=== PATIENT | female | born 1950 | race Hispanic/Latino ===

== ENCOUNTER 2017-03-03 13:46 | Emergency (ER) | payer MEDICARE ==
[~2017-03-03 13:46] MED LIST: ADV250 IH; ALBU8.5H8 IH; DICY20TA11 PO; DULO20CA17 PO; EZET10 PO; HYDR-4068 PO; LISI10TA7 PO; LORA2TAB2 PO; PANT40TA25 PO; PREG150C PO; TRAM50TA4 PO
[2017-03-03] MEDS ORDERED: ONDANSETRON HCL 4 MG/2 ML VIAL ONE (14:41)
[2017-03-03] MEDS ORDERED: MORPHINE SULFATE 4 MG/1ML SYG ONE (14:42)
[2017-06-26] MEDS ORDERED: NITR0.4T SL (08:57)
== END 2017-03-03 15:14 | disposition home or self-care (01) ==
LOC: EDH 13:46
DX: S40.011A Contusion of right shoulder, initial encounter (principal); Z88.0 Allergy status to penicillin; Z88.2 Allergy status to sulfonamides; Z88.8 Allergy status to other drugs, medicaments and biological substances; W18.39XA Other fall on same level, initial encounter; Y93.01 Activity, walking, marching and hiking; Y92.89 Other specified places as the place of occurrence of the external cause; Y99.8 Other external cause status
CPT/HCPCS: 73030; 73060; 96372 ×2; 99284; J2270; J2405

== ENCOUNTER 2017-04-02 21:02 | Emergency (ER) | payer MEDICARE ==
[2017-04-02] MEDS ORDERED: ONDANSETRON HCL 4 MG/2 ML VIAL ONE (21:56)
[2017-04-02] MEDS ORDERED: SODIUM CHLORIDE 0.9% 1000ML 1,000 ML IV ONE (21:57)
[2017-04-02] MEDS ORDERED: MORPHINE SULFATE 4 MG/1ML SYG ONE (21:57)
[2017-04-02 22:06] LABS: BASOPHILS % (AUTO) 1.4 % (0.0-5.0); EOSINOPHILS % (AUTO) 2.4 % (0.0-8.0); HEMATOCRIT 36.5 % (36-48); LYMPHOCYTES % (AUTO) 35.4 % (21.0-51.0); MEAN CORPUSCULAR HEMOGLOBIN 29.4 pg (27.0-33.0); MEAN CORPUSCULAR HGB CONC 34.4 g/dL (32.0-36.0); MEAN CORPUSCULAR VOLUME 85.5 fL (79-99); MONOCYTES % (AUTO) 9.3 % (3.0-13.0); NEUTROPHILS % (AUTO) 51.5 % (40.0-77.0); PLATELET COUNT (AUTO) 183 K/uL (130-400); RED BLOOD CELL COUNT(AUTO) 4.26 MIL/uL (4.00-5.50); RED CELL DISTRIBUTION WIDTH 14.9 % (11.0-15.5); WHITE BLOOD COUNT (AUTO) 7.4 K/uL (4.8-10.8)
[2017-04-02 22:38] LABS: RAPID GROUP A STREP NEGATIVE (NEGATIVE)
[2017-04-02 22:42] LABS: CREATININE 0.8 mg/dL (0.5-1.5); POTASSIUM 3.6 mmol/L (3.5-5.1)
[2017-04-02 22:45] LABS: BILIRUBIN,TOTAL 0.4 mg/dL (0.2-1.0); TOTAL PROTEIN, SERUM 6.5 g/dL (6.0-8.3)
[2017-04-02 23:44] LABS: APPEARANCE,URINE Clear (CLEAR); BILIRUBIN,URINE Negative (NEGATIVE); COLOR,URINE Yellow (YELLOW); GLUCOSE, URINE (UA) Negative (NEGATIVE); KETONES,URINE Negative (NEGATIVE); LEUKOCYTE ESTERASE ,URINE Negative (NEGATIVE); NITRATE,URINE Negative (NEGATIVE); OCCULT BLOOD,URINE Negative (NEGATIVE); PH,URINE 5.5 (5.0-8.0); PROTEIN,URINE Negative (NEGATIVE); UROBILINOGEN,URINE 0.2 mg/dL (0.2-1.0)
[2017-04-03] MEDS ORDERED: METHYLPREDNISOLONE SOD SUCC 125MG/2ML VIAL ONE (00:49)
[2017-04-03] MEDS ORDERED: KETOROLAC TROMETHAMINE 30MG/ML ONE (00:50)
[2017-06-26] MEDS ORDERED: NITR0.4T SL (08:57)
== END 2017-04-03 01:05 | disposition home or self-care (01) ==
LOC: EDH 21:02
DX: M06.80 Other specified rheumatoid arthritis, unspecified site (principal); I10 Essential (primary) hypertension; K21.9 Gastro-esophageal reflux disease without esophagitis; Z88.0 Allergy status to penicillin; Z88.2 Allergy status to sulfonamides; Z88.1 Allergy status to other antibiotic agents; Z91.040 Latex allergy status; Z88.8 Allergy status to other drugs, medicaments and biological substances
CPT/HCPCS: 36415; 71045; 80053; 81003; 85025; 87804 ×2; 87880; 96361; 96374; 96375; 99285; J1885; J2270; J2405; J2930; J7030

== ENCOUNTER 2017-04-10 00:25 | Observation (INO) | payer MEDICARE ==
[~2017-04-10] VITALS: Ht 149.9 cm; Wt 66.3 kg
[2017-04-10 01:26] LABS: BASOPHILS % (AUTO) 0.6 % (0.0-5.0); CARBON DIOXIDE 26 mmol/L (21-32); CHLORIDE 103 mmol/L (101-111); CREATININE 0.8 mg/dL (0.5-1.5); EOSINOPHILS % (AUTO) 0.1 % (0.0-8.0); GLOMERULAR FILTR. RATE CALC 76 mL/min (>60); GLUCOSE,RANDOM 151 mg/dL (70-105); LYMPHOCYTES % (AUTO) 12.3 % (21.0-51.0); MEAN CORPUSCULAR HEMOGLOBIN 29.8 pg (27.0-33.0); MEAN CORPUSCULAR HGB CONC 34.3 g/dL (32.0-36.0); MEAN CORPUSCULAR VOLUME 86.9 fL (79-99); MONOCYTES % (AUTO) 2.4 % (3.0-13.0); NEUTROPHILS % (AUTO) 84.6 % (40.0-77.0); PLATELET COUNT (AUTO) 184 K/uL (130-400); RED BLOOD CELL COUNT(AUTO) 4.26 MIL/uL (4.00-5.50); RED CELL DISTRIBUTION WIDTH 15.4 % (11.0-15.5); SODIUM SERUM 138 mmol/L (136-145); UREA NITROGEN, BLOOD 16 mg/dL (7-18); WHITE BLOOD COUNT (AUTO) 8.5 K/uL (4.8-10.8)
[2017-04-10 01:40] LABS: ALANINE AMINOTRANSFERASE 15 U/L (12-78); ASPARTATE AMINOTRANSFERASE 7 U/L (10-37); BILIRUBIN,TOTAL 0.3 mg/dL (0.2-1.0); CREATINE KINASE MB < 0.5 ng/mL (0.5-3.6); CREATINE KINASE, TOTAL 40 U/L (21-232); TOTAL PROTEIN, SERUM 6.2 g/dL (6.0-8.3)
[2017-04-10] MEDS ORDERED: NITROGLYCERIN 0.4 MG SL TAB SL ONE (02:11)
[2017-04-10] MEDS ORDERED: NITROGLYCERIN 1GM/1 INCH PACKET TD ONE (02:24)
[2017-04-10 02:44] LABS: INR 0.97 (0.85-1.15); PARTIAL THROMBOPLASTIN TIME 24.7 SEC (26.3-35.5); PROTHROMBIN TIME 10.2 SEC (9.6-11.6)
[2017-04-10] MEDS ORDERED: ONDANSETRON HCL 4 MG/2 ML VIAL ONE (05:28)
[2017-04-10] MEDS ORDERED: MORPHINE SULFATE 8 MG/ML VIAL ONE (05:29)
[2017-04-10] MEDS ORDERED: HYDRALAZINE HCL 20 MG/ML VIAL IV PRN (05:45)
[2017-04-10] MEDS ORDERED: ONDANSETRON HCL 4 MG/2 ML VIAL IV PRN (05:45)
[2017-04-10] MEDS ORDERED: ACETAMINOPHEN 325 MG TAB PO PRN (05:45)
[2017-04-10] MEDS ORDERED: NITROGLYCERIN 0.4 MG SL TAB SL PRN (05:45)
[2017-04-10] MEDS ORDERED: FAMOTIDINE 20MG TAB 20 MG TAB ONE (07:55)
[2017-04-10] MEDS ORDERED: ASPIRIN 325 MG TABLET ONE (07:55)
[2017-04-10 08:06] LABS: CREATINE KINASE MB < 0.5 ng/mL (0.5-3.6); CREATINE KINASE, TOTAL 33 U/L (21-232)
[2017-04-10] MEDS ORDERED: ACETAMINOPHEN 325 MG TAB ONE (08:53)
[2017-04-10] MEDS: FAMOTIDINE 20MG TAB 20 MG TAB PO SCH ×2 (09:00→21:06)
[2017-04-10] MEDS ORDERED: HYDROCODONE/ACETAMINOPHEN 10/325 MG TAB PO PRN (11:45)
[2017-04-10] MEDS ORDERED: TRAMADOL HCL 50 MG TABLET PO PRN (11:45)
[2017-04-10] MEDS ORDERED: DICYCLOMINE HCL 20 MG TAB PO PRN (11:45)
[2017-04-10 12:27] VITALS: BP 136/73
[2017-04-10] MEDS: SODIUM CHLORIDE 0.9% 1000ML 1,000 ML IV SCH ×3 (13:20→22:37)
[2017-04-10] MEDS: MORPHINE SULFATE 2 MG/ML 1ML SYG IV PRN ×2 (13:22→22:51)
[2017-04-10] MEDS ORDERED: GINK60TA2 PO (13:50)
[2017-04-10] MEDS ORDERED: SULF500T8 PO (13:50)
[2017-04-10] MEDS ORDERED: FISH1CAP27 PO (13:50)
[2017-04-10] MEDS ORDERED: FOLI1TAB15 PO (13:50)
[2017-04-10] MEDS ORDERED: CHOL500050 PO (13:50)
[2017-04-10] MEDS ORDERED: TRAM50TA4 PO (13:50)
[2017-04-10] MEDS ORDERED: HYDR-4064 PO (13:50)
[2017-04-10] MEDS ORDERED: AMLO5TAB2 PO (13:50)
[2017-04-10] MEDS ORDERED: FLUO-126 PO (13:50)
[2017-04-10] MEDS ORDERED: IBUP-2070 PO (13:50)
[2017-04-10] MEDS ORDERED: LEFL10TA15 PO (13:50)
[2017-04-10] MEDS ORDERED: MONT10TA24 PO (13:50)
[2017-04-10] MEDS ORDERED: NAPR-1023 PO (13:50)
[2017-04-10 13:54] LABS: CREATINE KINASE MB < 0.5 ng/mL (0.5-3.6); CREATINE KINASE, TOTAL 30 U/L (21-232); MYOGLOBIN 32 ng/mL (10-92); TROPONIN I < 0.04 ng/mL (0.00-0.06)
[2017-04-10 16:00] VITALS: BP 136/75
[2017-04-10] MEDS: ALBUTEROL SULFATE 0.083% 2.5 MG/3 ML INH IH SCH (18:28)
[2017-04-10] MEDS: BUDESONIDE 0.5 MG/2 ML INH IH SCH (18:28)
[2017-04-10 19:40] LABS: CREATINE KINASE MB < 0.5 ng/mL (0.5-3.6); CREATINE KINASE, TOTAL 33 U/L (21-232); MYOGLOBIN 22 ng/mL (10-92); TROPONIN I < 0.04 ng/mL (0.00-0.06)
[2017-04-10 20:00] VITALS: BP 144/70
[2017-04-10] MEDS ORDERED: LORAZEPAM 2 MG TABLET PO SCH (21:00)
[2017-04-10] MEDS: LORAZEPAM 1 MG TABLET PO SCH (21:04)
[2017-04-10] MEDS: PREGABALIN 75 MG CAPSULE PO SCH (21:06)
[2017-04-11] VITALS: BP 126/72
[2017-04-11] MEDS: ALBUTEROL SULFATE 0.083% 2.5 MG/3 ML INH IH SCH ×3 (00:14→11:02)
[2017-04-11 04:00] VITALS: BP 130/72
[2017-04-11] MEDS: BUDESONIDE 0.5 MG/2 ML INH IH SCH (06:17)
[2017-04-11 08:00] VITALS: BP 118/57
[2017-04-11] MEDS ORDERED: LACTULOSE 20 GM/30 ML UDCUP PO SCH (08:15)
[2017-04-11] MEDS ORDERED: EZETIMIBE 10 MG TAB PO SCH (09:00)
[2017-04-11] MEDS ORDERED: LISINOPRIL 10 MG TABLET PO SCH (09:00)
[2017-04-11] MEDS ORDERED: DULOXETINE HCL 30 MG CAP PO SCH (09:00)
[2017-04-11] MEDS ORDERED: PANTOPRAZOLE SODIUM 40 MG TABLET.DR PO SCH (09:00)
[2017-04-11] MEDS ORDERED: ASPIRIN 325 MG TABLET PO SCH (09:00)
[2017-04-11] MEDS: FAMOTIDINE 20MG TAB 20 MG TAB PO SCH (09:57)
[2017-04-11] MEDS: PREGABALIN 75 MG CAPSULE PO SCH (09:57)
[2017-04-11] MEDS: LORAZEPAM 1 MG TABLET PO SCH (09:58)
[2017-06-26] MEDS ORDERED: NITR0.4T SL (08:57)
== END 2017-04-11 12:10 | disposition home or self-care (01) ==
LOC: EDH 00:25 → EDHIP 02:01 → 3BH 11:56
PROVIDERS: ADMIT Family Medicine; ATTEND Family Medicine
DX: R07.89 Other chest pain (principal); K21.9 Gastro-esophageal reflux disease without esophagitis; I10 Essential (primary) hypertension; M06.9 Rheumatoid arthritis, unspecified; Z79.899 Other long term (current) drug therapy
CPT/HCPCS: 36415; 80053; 82550 ×4; 82553 ×4; 83874 ×2; 84484 ×4; 85025; 85610; 85730; 93005 ×3; 94640 ×5; 94664; 96361 ×2; 96374; 96375; 96376; 99291; A4510; G0378 ×34; J2270; J2405 ×2; J7030

== ENCOUNTER 2017-05-06 22:41 | Emergency (ER) | payer MEDICARE ==
[~2017-05-06 22:41] MED LIST changes: +AMLO5TAB2 PO; +CHOL500050 PO; +FISH1CAP27 PO; +FLUO-126 PO; +FOLI1TAB15 PO; +GINK60TA2 PO; +HYDR-4064 PO; +IBUP-2070 PO; +LEFL10TA15 PO; +MONT10TA24 PO; +NAPR-1023 PO; +SULF500T8 PO
[2017-05-06] MEDS ORDERED: ASPIRIN 325 MG TABLET ONE (23:42)
[2017-05-07 00:13] LABS: BASOPHILS % (AUTO) 0.7 % (0.0-5.0); EOSINOPHILS % (AUTO) 3.7 % (0.0-8.0); HEMATOCRIT 36.4 % (36-48); LYMPHOCYTES % (AUTO) 39.8 % (21.0-51.0); MEAN CORPUSCULAR HEMOGLOBIN 29.7 pg (27.0-33.0); MEAN CORPUSCULAR HGB CONC 34.1 g/dL (32.0-36.0); MEAN CORPUSCULAR VOLUME 87.1 fL (79-99); MONOCYTES % (AUTO) 10.2 % (3.0-13.0); NEUTROPHILS % (AUTO) 45.6 % (40.0-77.0); PLATELET COUNT (AUTO) 220 K/uL (130-400); RED BLOOD CELL COUNT(AUTO) 4.18 MIL/uL (4.00-5.50); RED CELL DISTRIBUTION WIDTH 14.9 % (11.0-15.5); WHITE BLOOD COUNT (AUTO) 6.1 K/uL (4.8-10.8)
[2017-05-07 00:23] LABS: CREATININE 0.7 mg/dL (0.5-1.5); POTASSIUM 3.7 mmol/L (3.5-5.1)
[2017-05-07 00:25] LABS: INR 0.97 (0.85-1.15); PARTIAL THROMBOPLASTIN TIME 26.6 SEC (26.3-35.5); PROTHROMBIN TIME 10.2 SEC (9.6-11.6)
[2017-05-07 00:36] LABS: ALBUMIN 3.2 g/dL (3.5-5.0); BILIRUBIN,TOTAL 0.5 mg/dL (0.2-1.0); CREATINE KINASE MB 0.7 ng/mL (0.5-3.6); TOTAL PROTEIN, SERUM 6.6 g/dL (6.0-8.3)
[2017-05-07 00:46] LABS: B-TYPE NATRIURETIC PEPTIDE 21 pg/mL (0-100)
[2017-05-07] MEDS ORDERED: HYDROCODONE/ACETAMINOPHEN 10/325 MG TAB ONE (00:54)
[2017-06-26] MEDS ORDERED: NITR0.4T SL (08:57)
== END 2017-05-07 01:31 | disposition home or self-care (01) ==
LOC: EDH 22:41
DX: R53.1 Weakness (principal); G89.29 Other chronic pain; M25.50 Pain in unspecified joint; K21.9 Gastro-esophageal reflux disease without esophagitis; I10 Essential (primary) hypertension; M06.9 Rheumatoid arthritis, unspecified; Z88.0 Allergy status to penicillin; Z88.2 Allergy status to sulfonamides; Z88.1 Allergy status to other antibiotic agents; Z91.040 Latex allergy status; Z98.890 Other specified postprocedural states
CPT/HCPCS: 36415; 71045; 80053; 82550; 82553; 83874; 83880; 84484; 85025; 85610; 85730; 93005; 94761

== ENCOUNTER 2017-05-14 01:33 | Emergency (ER) | payer MEDICARE ==
[2017-05-14 02:25] LABS: BASOPHILS % (AUTO) 0.6 % (0.0-5.0); EOSINOPHILS % (AUTO) 3.1 % (0.0-8.0); HEMATOCRIT 37.6 % (36-48); LYMPHOCYTES % (AUTO) 47.6 % (21.0-51.0); MEAN CORPUSCULAR HEMOGLOBIN 30.2 pg (27.0-33.0); MEAN CORPUSCULAR HGB CONC 34.6 g/dL (32.0-36.0); MEAN CORPUSCULAR VOLUME 87.4 fL (79-99); MONOCYTES % (AUTO) 8.6 % (3.0-13.0); NEUTROPHILS % (AUTO) 40.1 % (40.0-77.0); NUCLEATED RED BLOOD CELLS 0.1 % (0.0-0.19); PLATELET COUNT (AUTO) 194 K/uL (130-400); RED BLOOD CELL COUNT(AUTO) 4.31 MIL/uL (4.00-5.50); RED CELL DISTRIBUTION WIDTH 14.6 % (11.0-15.5); WHITE BLOOD COUNT (AUTO) 7.9 K/uL (4.8-10.8)
[2017-05-14] MEDS ORDERED: METHYLPREDNISOLONE SOD SUCC 125MG/2ML VIAL ONE (02:28)
[2017-05-14] MEDS ORDERED: IPRATROPIUM/ALBUTEROL SULFATE 3 ML SOLUTION IH ONE (02:29)
[2017-05-14 02:39] LABS: INR 0.99 (0.85-1.15); PARTIAL THROMBOPLASTIN TIME 27.3 SEC (26.3-35.5); PROTHROMBIN TIME 10.4 SEC (9.6-11.6)
[2017-05-14 02:42] LABS: CREATININE 0.7 mg/dL (0.5-1.5); POTASSIUM 3.2 mmol/L (3.5-5.1)
[2017-05-14 02:58] LABS: ALBUMIN 3.4 g/dL (3.5-5.0); BILIRUBIN,TOTAL 0.5 mg/dL (0.2-1.0); CREATINE KINASE MB 0.8 ng/mL (0.5-3.6); TOTAL PROTEIN, SERUM 6.2 g/dL (6.0-8.3)
[2017-05-14 03:36] LABS: APPEARANCE,URINE Clear (CLEAR); BILIRUBIN,URINE Negative (NEGATIVE); COLOR,URINE Dark Yellow (YELLOW); GLUCOSE, URINE (UA) Negative (NEGATIVE); KETONES,URINE Negative (NEGATIVE); LEUKOCYTE ESTERASE ,URINE Moderate (NEGATIVE); NITRATE,URINE Positive (NEGATIVE); OCCULT BLOOD,URINE Negative (NEGATIVE); PROTEIN,URINE Negative (NEGATIVE); UROBILINOGEN,URINE 0.2 mg/dL (0.2-1.0)
[2017-05-14 04:01] LABS: BACTERIA,URINE Many /HPF (None Seen); RBC,URINE None Seen /HPF (0-1); SQUAMOUS EPITHELIAL CELL,UR Rare /HPF (0-2)
[2017-05-14] MEDS ORDERED: CEFTRIAXONE SODIUM 1 GM ONE (04:36)
[2017-06-26] MEDS ORDERED: NITR0.4T SL (08:57)
== END 2017-05-14 05:19 | disposition home or self-care (01) ==
LOC: EDH 01:33
DX: J45.998 Other asthma (principal); N39.0 Urinary tract infection, site not specified; K21.9 Gastro-esophageal reflux disease without esophagitis; I10 Essential (primary) hypertension; M06.9 Rheumatoid arthritis, unspecified; Z88.0 Allergy status to penicillin; Z88.8 Allergy status to other drugs, medicaments and biological substances; Z88.1 Allergy status to other antibiotic agents; Z91.040 Latex allergy status
CPT/HCPCS: 36415; 71045; 80053; 81001; 82553; 83880; 84484; 85025; 85610; 85730; 87088; 87186; 87804 ×2; 93005; 94640; 96374; 96375; 99285; J0696; J2930

== ENCOUNTER → 2017-07-20 | Outpatient (CLI) | payer MEDICARE ==
[~2017-07-20] MED LIST changes: -DICY20TA11 PO; -FISH1CAP27 PO; -GINK60TA2 PO; -HYDR-4068 PO; -LISI10TA7 PO; -NAPR-1023 PO; +NITR0.4T SL
== END | disposition home or self-care (01) ==
LOC: RAH 10:53
PROVIDERS: ATTEND Family Medicine
DX: M51.36 Other intervertebral disc degeneration, lumbar region (principal); M48.061 Spinal stenosis, lumbar region without neurogenic claudication; M54.41 Lumbago with sciatica, right side
CPT/HCPCS: 72148

== ENCOUNTER 2018-04-15 08:15 | Day surgery (SDC) | payer MEDICARE ==
[2018-04-13 15:39] LABS: BASOPHILS % (AUTO) 0.5 % (0.0-5.0); EOSINOPHILS % (AUTO) 1.3 % (0.0-8.0); HEMATOCRIT 40.6 % (36-48); LYMPHOCYTES % (AUTO) 27.9 % (21.0-51.0); MEAN CORPUSCULAR HEMOGLOBIN 30.9 pg (27.0-33.0); MEAN CORPUSCULAR HGB CONC 33.3 g/dL (32.0-36.0); MEAN CORPUSCULAR VOLUME 92.6 fL (79-99); MONOCYTES % (AUTO) 7.6 % (3.0-13.0); NEUTROPHILS % (AUTO) 62.7 % (40.0-77.0); PLATELET COUNT (AUTO) 232 K/uL (130-400); RED BLOOD CELL COUNT(AUTO) 4.38 MIL/uL (4.00-5.50); RED CELL DISTRIBUTION WIDTH 12.4 % (11.0-15.5); WHITE BLOOD COUNT (AUTO) 8.6 K/uL (4.8-10.8)
[2018-04-13 15:41] LABS: BILIRUBIN,URINE Negative (NEGATIVE); COLOR,URINE Yellow (YELLOW); GLUCOSE, URINE (UA) Negative (NEGATIVE); KETONES,URINE Negative (NEGATIVE); LEUKOCYTE ESTERASE ,URINE Negative (NEGATIVE); NITRATE,URINE Negative (NEGATIVE); OCCULT BLOOD,URINE Negative (NEGATIVE); PROTEIN,URINE Negative (NEGATIVE)
[2018-04-13 15:42] LABS: APPEARANCE,URINE CLEAR (CLEAR)
[2018-04-13 15:52] LABS: INR 1.01 (0.85-1.15); PARTIAL THROMBOPLASTIN TIME 27.9 SEC (26.3-35.5); PROTHROMBIN TIME 10.6 SEC (9.6-11.6)
[2018-04-13 15:54] LABS: CREATININE 0.8 mg/dL (0.5-1.5); POTASSIUM 4.7 mmol/L (3.5-5.1)
[2018-04-13 16:03] VITALS: BP 123/58
[~2018-04-15] VITALS: Ht 147.3 cm; Wt 61.4 kg
[2018-04-15] VITALS (10 sets, daily range): BP systolic 135–155; BP diastolic 53–76
[~2018-04-15 08:15] MED LIST changes: +ALBUHFA IH; -AMLO5TAB2 PO; -CHOL500050 PO; -DULO20CA17 PO; -EZET10 PO; +FLUT16H NASAL; -FOLI1TAB15 PO; +HYDR-4060 PO; -HYDR-4064 PO; -IBUP-2070 PO; +INDO50CA12 PO; -LEFL10TA15 PO; -MONT10TA24 PO; -NITR0.4T SL; +SODIUM CHLORIDE 0.9% 500ML 500 ML IV SCH; -SULF500T8 PO
--- NOTE | 2018-04-15 09:30 | NUR ---
PAIN PT C/O PAIN TO BACK. PT HAS SEVERE RHEUMATOID ARTHRITIS. INFORMED DR. URBINA. ORDERS RECEIVED TO HAVE PT TAKE HYDROCODONE FROM HOME STOCK THAT SHE USES FOR PAIN CONTROL.
[2018-04-15] MEDS ORDERED: SODIUM CHLORIDE 0.9% 1000ML 1,000 ML IV ONE (09:34)
[2018-04-15] MEDS ORDERED: IOHEXOL 350 MG/ML 100ML INFUS..BTL IV ONE (10:42)
[2018-04-15] MEDS ORDERED: NITROGLYCERIN 5 MG/ML 10 ML VIAL IV ONE (10:42)
[2018-04-15] MEDS ORDERED: IOHEXOL-350 50ML VIAL IV ONE (10:42)
[2018-04-15] MEDS ORDERED: LIDOCAINE HCL 2% 20ML ONE ×2 (10:43→11:49)
--- NOTE | 2018-04-15 10:53 | NUR ---
PROCEDURE PT TAKEN TO PROCEDURE VIA STRETCHER BY Candice STARK RN. PT DENIES ANY DISCOMFORT AT THIS TIME.
[2018-04-15] MEDS ORDERED: MIDAZOLAM HCL 1 MG/ML 2ML VIAL ONE (11:03)
[2018-04-15] MEDS ORDERED: HEPARIN SODIUM 1000UNIT/ML 10ML VIAL ONE (11:04)
[2018-04-15] MEDS ORDERED: FENTANYL CITRATE PF 50 MCG/1 ML 2ML VIAL ONE ×2 (11:50→13:03)
[2018-04-15] MEDS ORDERED: SODIUM CHLORIDE 0.9% 1000ML 1,000 ML IV SCH (13:09)
--- NOTE | 2018-04-15 17:01 | NUR ---
PATIENT PATIENT WAITING FOR IVF TO BE COMPLETED TO BE DISCHARGE HOME.
--- NOTE | 2018-04-15 17:01 | NUR ---
CARE RESUME CARE OF PATIENT FROM ABE HIGHTOWER RN. PT LYING IN BED, NO DISTRESS NOTED. DENIES ANY PAIN OR DISCOMFORTS. RIGHT GROIN DRESSING DRY AND INTACT, PEDAL PULSES PRESENT , NEUROVASCULAR CHECKS TO RLMariangel LANDERS. Sarah HIGHTOWER RN ALREADY HAD GIVEN DC INSTRUCTIONS EARLY TO PT'S DAUGHTER
--- NOTE | 2018-04-15 19:25 | NUR ---
DC PT DC HOME VIA WC, NO DISTRESS NOTED. DENIES ANY PAIN OR DISCOMFORTS. FLUIDS COMPLETED . RIGHT GROIN DRESSING DRY AND INTACT, NEUROVASCULAR CHECKS WNL. PT ACCOMPANIED BY SON. PT DENIES ANY PAIN OR DISCOMFORTS.
== END 2018-04-15 19:25 | disposition home or self-care (01) ==
LOC: DAH 08:15
PROVIDERS: ATTEND Internal Medicine Cardiovascular Disease
DX: I25.118 Atherosclerotic heart disease of native coronary artery with other forms of angina pectoris (principal); I10 Essential (primary) hypertension; M06.9 Rheumatoid arthritis, unspecified; J45.909 Unspecified asthma, uncomplicated; Z79.899 Other long term (current) drug therapy; Z98.890 Other specified postprocedural states; Z82.49 Family history of ischemic heart disease and other diseases of the circulatory system; Z88.0 Allergy status to penicillin; Z88.8 Allergy status to other drugs, medicaments and biological substances; Z79.01 Long term (current) use of anticoagulants
CPT/HCPCS: 36415; 71045; 80048; 81003; 85025; 85610; 85730; 93005; 93460; A4606; C1760; C1894 ×2; J1644; J2250; J3010 ×2; J3490 ×3; J7030; Q9965 ×2; Q9967 ×2; 99156; 99157

== ENCOUNTER 2018-04-21 12:25 | Emergency (ER) | payer MEDICARE ==
[~2018-04-21 12:25] MED LIST changes: -SODIUM CHLORIDE 0.9% 500ML 500 ML IV SCH
[2018-04-21 12:51] LABS: BASOPHILS % (AUTO) 0.5 % (0.0-5.0); HEMATOCRIT 38.3 % (36-48); LYMPHOCYTES % (AUTO) 25.6 % (21.0-51.0); MEAN CORPUSCULAR HEMOGLOBIN 30.7 pg (27.0-33.0); MEAN CORPUSCULAR HGB CONC 33.3 g/dL (32.0-36.0); MEAN CORPUSCULAR VOLUME 92.3 fL (79-99); MONOCYTES % (AUTO) 5.6 % (3.0-13.0); NEUTROPHILS % (AUTO) 66.3 % (40.0-77.0); NUCLEATED RED BLOOD CELLS 0.1 % (0.0-0.19); PLATELET COUNT (AUTO) 189 K/uL (130-400); RED BLOOD CELL COUNT(AUTO) 4.15 MIL/uL (4.00-5.50); RED CELL DISTRIBUTION WIDTH 12.9 % (11.0-15.5); WHITE BLOOD COUNT (AUTO) 8.9 K/uL (4.8-10.8)
[2018-04-21 13:01] LABS: INR 0.95 (0.85-1.15); PARTIAL THROMBOPLASTIN TIME 26.2 SEC (26.3-35.5)
[2018-04-21 13:02] LABS: CREATININE 0.8 mg/dL (0.5-1.5); POTASSIUM 4.3 mmol/L (3.5-5.1)
[2018-04-21 13:09] LABS: ALBUMIN 3.1 g/dL (3.5-5.0); BILIRUBIN,TOTAL 0.3 mg/dL (0.2-1.0); TOTAL PROTEIN, SERUM 6.4 g/dL (6.0-8.3)
[2018-04-21 14:52] LABS: APPEARANCE,URINE Clear (CLEAR); BILIRUBIN,URINE Negative (NEGATIVE); COLOR,URINE Yellow (YELLOW); GLUCOSE, URINE (UA) Negative (NEGATIVE); KETONES,URINE Negative (NEGATIVE); LEUKOCYTE ESTERASE ,URINE Moderate (NEGATIVE); NITRATE,URINE Positive (NEGATIVE); OCCULT BLOOD,URINE Negative (NEGATIVE); PH,URINE 5.5 (5.0-8.0); PROTEIN,URINE Negative (NEGATIVE); UROBILINOGEN,URINE 0.2 mg/dL (0.2-1.0)
[2018-04-21 15:06] LABS: BACTERIA,URINE Many /HPF (None Seen); RBC,URINE None Seen /HPF (0-1); WBC,URINE 26-50 /HPF (0-1)
== END 2018-04-21 16:02 | disposition home or self-care (01) ==
LOC: EDH 12:25
DX: S09.8XXA Other specified injuries of head, initial encounter (principal); M06.9 Rheumatoid arthritis, unspecified; J45.909 Unspecified asthma, uncomplicated; K21.9 Gastro-esophageal reflux disease without esophagitis; I10 Essential (primary) hypertension; M54.2 Cervicalgia; Z90.710 Acquired absence of both cervix and uterus; Z96.653 Presence of artificial knee joint, bilateral; Z88.0 Allergy status to penicillin; Z88.2 Allergy status to sulfonamides; Z88.8 Allergy status to other drugs, medicaments and biological substances; Z88.1 Allergy status to other antibiotic agents; Z91.040 Latex allergy status; W18.39XA Other fall on same level, initial encounter; Y93.01 Activity, walking, marching and hiking; Y92.89 Other specified places as the place of occurrence of the external cause; Y99.8 Other external cause status
CPT/HCPCS: 36415; 70450; 72125; 80053; 81001; 82550; 84484; 85025; 85610; 85730; 93005

== ENCOUNTER 2018-04-28 01:06 | Emergency (ER) | payer MEDICARE ==
[2018-04-28 01:44] LABS: BASOPHILS % (AUTO) 0.5 % (0.0-5.0); EOSINOPHILS % (AUTO) 2.2 % (0.0-8.0); LYMPHOCYTES % (AUTO) 29.9 % (21.0-51.0); MEAN CORPUSCULAR HEMOGLOBIN 31.1 pg (27.0-33.0); MEAN CORPUSCULAR HGB CONC 34.1 g/dL (32.0-36.0); MEAN CORPUSCULAR VOLUME 91.1 fL (79-99); MONOCYTES % (AUTO) 7.6 % (3.0-13.0); NEUTROPHILS % (AUTO) 59.8 % (40.0-77.0); PLATELET COUNT (AUTO) 183 K/uL (130-400); RED BLOOD CELL COUNT(AUTO) 4.06 MIL/uL (4.00-5.50); RED CELL DISTRIBUTION WIDTH 12.7 % (11.0-15.5); WHITE BLOOD COUNT (AUTO) 7.2 K/uL (4.8-10.8)
[2018-04-28 01:52] LABS: CREATININE 0.7 mg/dL (0.5-1.5); POTASSIUM 3.9 mmol/L (3.5-5.1)
[2018-04-28 01:57] LABS: BILIRUBIN,TOTAL 0.4 mg/dL (0.2-1.0); INR 0.96 (0.85-1.15); PARTIAL THROMBOPLASTIN TIME 29.3 SEC (26.3-35.5); PROTHROMBIN TIME 10.1 SEC (9.6-11.6); TOTAL PROTEIN, SERUM 6.6 g/dL (6.0-8.3)
[2018-04-28 01:59] LABS: B-TYPE NATRIURETIC PEPTIDE 32 pg/mL (0-100)
[2018-04-28] MEDS ORDERED: KETOROLAC TROMETHAMINE 30MG/ML ONE (02:00)
[2018-04-28] MEDS ORDERED: HYDROCODONE/ACETAMINOPHEN 10/325 MG TAB ONE (03:39)
== END 2018-04-28 05:59 | disposition home or self-care (01) ==
LOC: EDH 01:06
DX: S22.32XA Fracture of one rib, left side, initial encounter for closed fracture (principal); F41.9 Anxiety disorder, unspecified; I10 Essential (primary) hypertension; K21.9 Gastro-esophageal reflux disease without esophagitis; J45.909 Unspecified asthma, uncomplicated; M06.9 Rheumatoid arthritis, unspecified; Z88.0 Allergy status to penicillin; Z88.1 Allergy status to other antibiotic agents; Z88.2 Allergy status to sulfonamides; Z91.040 Latex allergy status; Z90.710 Acquired absence of both cervix and uterus; Z98.890 Other specified postprocedural states; W19.XXXA Unspecified fall, initial encounter; Y93.89 Activity, other specified; Y92.89 Other specified places as the place of occurrence of the external cause; Y99.8 Other external cause status
CPT/HCPCS: 36415; 71250; 80053; 82550; 83690; 83880; 84484; 85025; 85610; 85730; 93005; 96374; 99284; J1885

== ENCOUNTER 2021-01-22 15:50 | Emergency (ER) | payer MEDICARE, OTHER ==
[~2021-01-22] VITALS: Ht 149.9 cm; Wt 68.0 kg
[~2021-01-22 15:50] MED LIST changes: -FLUO-126 PO; +FLUO20CA36 PO; -INDO50CA12 PO; +INDO50CA98 PO; -PANT40TA25 PO; +PANT40TA54 PO
[2021-01-22] MEDS ORDERED: IPRATROPIUM/ALBUTEROL SULFATE 3 ML SOLUTION IH ONE ×2 (16:23→17:30)
[2021-01-22 16:30] LABS: BASOPHILS % (AUTO) 0.6 % (0.0-5.0); EOSINOPHILS % (AUTO) 2.7 % (0.0-8.0); HEMATOCRIT 40.1 % (36-48); LYMPHOCYTES % (AUTO) 21.9 % (21.0-51.0); MEAN CORPUSCULAR HEMOGLOBIN 29.6 pg (27.0-33.0); MEAN CORPUSCULAR HGB CONC 32.9 g/dL (32.0-36.0); MEAN CORPUSCULAR VOLUME 89.9 fL (79-99); MONOCYTES % (AUTO) 8.3 % (3.0-13.0); PLATELET COUNT (AUTO) 212 K/uL (130-400); RED BLOOD CELL COUNT(AUTO) 4.46 MIL/uL (4.00-5.50); RED CELL DISTRIBUTION WIDTH 14.2 % (11.0-15.5); WHITE BLOOD COUNT (AUTO) 9.4 K/uL (4.8-10.8)
[2021-01-22 16:44] LABS: POTASSIUM 3.3 mmol/L (3.5-5.1)
[2021-01-22 16:56] LABS: ALBUMIN 3.1 g/dL (3.5-5.0); BILIRUBIN,TOTAL 0.4 mg/dL (0.2-1.0); TOTAL PROTEIN, SERUM 6.5 g/dL (6.0-8.3)
[2021-01-22] MEDS ORDERED: SOLU-MEDROL 125MG VIAL IVP ONE (17:30)
[2021-01-22] MEDS ORDERED: ALBUTEROL 0.083% 2.5 MG/3 ML INH IH ONE ×3 (19:07→20:10)
[2021-01-22] MEDS ORDERED: POTASSIUM BICARB/CIT AC 25 MEQ TABLET.EFF PO ONE (20:00)
[2021-01-22 20:23] VITALS: BP 157/67
[2021-01-22] MEDS ORDERED: ALBU2.5V2 IH (20:23)
[2021-01-22] MEDS ORDERED: PRED20TA3 PO (20:23)
[2021-01-22] MEDS ORDERED: ALBU8.5H8 IH (20:23)
[2021-01-22] MEDS ORDERED: AZIT250T9 PO (20:23)
[2021-01-22] MEDS ORDERED: PREDNISONE 20 MG TABLET ONE (20:42)
[2021-01-22] MEDS ORDERED: AZITHROMYCIN 250 MG TABLET PO ONE ×2 (20:43→21:30)
[2021-01-22] MEDS ORDERED: PREDNISONE 20 MG TABLET PO ONE (21:30)
== END 2021-01-22 20:50 | disposition home or self-care (01) ==
LOC: EDH 15:50
DX: J44.1 Chronic obstructive pulmonary disease with (acute) exacerbation (principal); I10 Essential (primary) hypertension; E78.00 Pure hypercholesterolemia, unspecified; F17.200 Nicotine dependence, unspecified, uncomplicated; M19.90 Unspecified osteoarthritis, unspecified site; Z88.1 Allergy status to other antibiotic agents; Z88.2 Allergy status to sulfonamides; Z91.040 Latex allergy status; Z79.51 Long term (current) use of inhaled steroids; Z79.52 Long term (current) use of systemic steroids; Z79.899 Other long term (current) drug therapy
CPT/HCPCS: 36415; 71045; 80053; 84484; 85025; 93005; 94640 ×3; 96374; 99285; J2930